=== PATIENT | male | born 1950 | race Caucasian/White ===

== ENCOUNTER 2017-04-28 09:51 | Emergency (ER) | payer MEDICARE, OTHER ==
[~2017-04-28] VITALS: Ht 177.8 cm; Wt 59.8 kg
[~2017-04-28 09:51] MED LIST: FLUO20TA20 PO; LAMO100T PO; LISI-360 PO; LORA0.5T PO; MIRT30 OR; MS C30TA5 PO; NORV5TAB PO; PRIL20CA PO; SPIRCAP INH; VENTAER INH; ZANA4CAP PO
[2017-04-28 09:55] VITALS: BP 128/72; PULSE 74; RESP 18; TEMP 98.8; O2SAT 96
[2017-04-28] MEDS ORDERED: LIDOCAINE HCL 1% PF 30 ML VIAL ONE (10:02)
[2017-04-28] MEDS ORDERED: FLUO20CA12 PO (10:09)
[2017-04-28] MEDS ORDERED: MULT1TAB46 PO (10:09)
[2017-04-28] MEDS ORDERED: SPIRCAP INH (10:09)
[2017-04-28] MEDS ORDERED: VENTAER INH (10:09)
[2017-04-28] MEDS ORDERED: LISI10TA3 PO (10:09)
[2017-04-28] MEDS ORDERED: ASPI-110 PO (10:09)
[2017-04-28] MEDS ORDERED: LAMO100T PO (10:09)
[2017-04-28] MEDS ORDERED: LORA1TAB12 PO (10:09)
[2017-04-28] MEDS ORDERED: OMEP20TA PO (10:09)
[2017-04-28] MEDS ORDERED: TIZA4CAP3 PO (10:10)
[2017-04-28] MEDS ORDERED: AMLO5 PO (10:10)
[2017-04-28] MEDS ORDERED: LIDOCAINE HCL 1% PF 30 ML VIAL INFIL ONE (10:15)
--- NOTE | 2017-04-28 10:30 | PD ---
HPI Chief Complaint: Laceration/Skin Injury Time Seen by Provider: 10:02 Travel History International Travel<30 days: No Contact w/Intl Traveler<30days: No Traveled to known affect area: No History of Present Illness HPI This 66-year-old male presents with a laceration of his left hand. He says he was sitting on his riding lawnmower and his hand hit a branch causing a laceration on the dorsal surface of the hand. The laceration is overlying the fourth metacarpophalangeal joint. He has full use of the hand. He has no numbness or tingling. He was no other injury [facility] Past Medical History Anxiety: Yes Depression: Yes Cancer: No Cardiovascular Problems: No COPD: Yes (EMPHYSEMA) Diabetes: No Diminished Hearing: No Endocrine: No Hepatitis: No Hiatal Hernia: No Hypertension: Yes Immune Disorder: No Medical other: Yes (ARTHRITIS BACK; NUMBNESS & PAIN LEFT LEG) Musculoskeletal: Yes (CHRONIC BACK PAIN) Neurologic: No Psychiatric: Yes (ANXIETY, DEPRESSION) Reproductive: No Respiratory: Yes (EMPHYSEMA) Thyroid Disease: No Tetanus Vaccination: < 5 Years Influenza Vaccination: Yes ?: Not Past Surgical History Surgical History: No Previous Surgery Abdominal Surgery: No Cardiac Surgery: No Ear Surgery: No Endocrine Surgery: No Eye Surgery: Yes (PHACO RIGHT EYE FEBRUARY 2011) Genitourinary Surgery: No Neurologic Surgery: Yes (LAMINECTOMY L-5 AND S-1 18 YRS AGO) Pacemaker: No Thoracic Surgery: No Other Surgery: Yes (BACK [id number]) Social History Alcohol Use: No (QUIT 10 YEARS AGO) Tobacco Use: Yes (1 PPD) Substance Use: No Allergies-Medications (Allergen,Severity, Reaction): Coded Allergies: No Known Allergies (Verified , 04/28/17) Reported Meds & Prescriptions Reported Meds & Active Scripts Active Reported Tizanidine (Tizanidine HCl) 4 Mg Cap 4 Mg PO BID Norvasc (Amlodipine Besylate) 5 Mg Tab 5 Mg PO DAILY Multi Vitamin Daily (Multiple Vitamin) 1 Tab Tab 1 Tab PO DAILY Aspirin 81 (Aspirin) 81 Mg Tabdr 81 Mg PO DAILY Omeprazole 20 Mg Tab 20 Mg PO DAILY Lorazepam 1 Mg Tab 1 Mg PO Q6H PRN Fluoxetine (Fluoxetine HCl) 20 Mg Capsule 20 Mg PO DAILY Lisinopril 10 Mg Tab 10 Mg PO DAILY Lamotrigine 100 Mg Tab 100 Mg PO DAILY Spiriva Handihaler (Tiotropium Inh) 18 Mcg Cap 18 Mcg INH DAILY 1 capsule = 18 mcg Ventolin Hfa 18 GM Inh (Albuterol Sulfate) 90 Mcg/Act Aer 2 Puff INH Q4-6H PRN Review of Systems General / Constitutional: No: Fever, Chills HENT: No: Headaches Cardiovascular: No: Chest Pain or Discomfort Gastrointestinal: No: Vomiting Neurologic: No: Dizziness, Syncope Physical Exam Narrative GENERAL: Thin male no acute distress SKIN: Focused skin assessment warm/dry. HEAD: Atraumatic. Normocephalic. EYES: Pupils equal and round. No scleral icterus. No injection or drainage. ENT: No nasal bleeding or discharge. Mucous membranes pink and moist MUSCULOSKELETAL: No obvious deformities. No clubbing. No cyanosis. No edema. Examination of the left hand there is a superficial laceration of the left hand. It is a stellate flap-type laceration overlying the fourth metacarpophalangeal joint. He has full strength and extension of the fourth and fifth fingers. Sensation is intact. There is no bony tenderness. NEUROLOGICAL: Awake and alert. No obvious cranial nerve deficits. Motor grossly within normal limits. Normal speech. PSYCHIATRIC: Appropriate mood and affect; insight and judgment normal. Data Data Last Documented VS Vital Signs Date Time Temp Pulse Resp B/P Pulse Ox O2 Delivery O2 Flow Rate FiO2 04/28/17 09:55 98.8 74 18 128/72 96 Orders Lidocaine Pf 1% Inj (Xylocaine-Mpf 1% In (04/28/17 10:02) Lidocaine Pf 1% Inj (Xylocaine-Mpf 1% In (04/28/17 10:15) MDM Medical Decision Making Medical Screen Exam Complete: Yes Emergency Medical Condition: Yes Medical Record Reviewed: Yes Differential Diagnosis Differential includes laceration hand, neurovascular injury Narrative Course Physical examination does not show any evidence of weakness or other evidence of neurovascular injury. This appears to be a soft tissue injury Procedures Procedure Narrative Procedure was discussed with the patient. The wound was anesthetized with 1% lidocaine. It was irrigated thoroughly with tap water and cleaned with Betadine and the Betadine thoroughly irrigated. After cleansing of the wound the stellate flap-type laceration is approximated with 4-0 nylon sutures. There was a single-layer closure of approximately 5 cm. Patient tolerated the procedure well. Hemostasis was obtained. A sterile dressing applied Diagnosis Primary Impression: Laceration of left hand Additional Instructions: Suture removal 10-14 days, return if redness, drainage, fever Disposition: 01 DISCHARGE HOME Condition: Stable Wilber Hernandez MD Apr 28, 2017 10:30
== END 2017-04-28 10:44 | disposition home or self-care (01) ==
LOC: PHED 09:51
DX: S61.412A Laceration without foreign body of left hand, initial encounter (principal); J43.9 Emphysema, unspecified; I10 Essential (primary) hypertension; F17.210 Nicotine dependence, cigarettes, uncomplicated; W22.8XXA Striking against or struck by other objects, initial encounter; Y93.H2 Activity, gardening and landscaping; Y92.007 Garden or yard of unspecified non-institutional (private) residence as the place of occurrence of the external cause
CPT/HCPCS: 12002

== ENCOUNTER 2017-10-01 08:24 | Emergency (ER) | payer OTHER ==
[~2017-10-01] VITALS: Ht 177.8 cm; Wt 62.6 kg
[~2017-10-01 08:24] MED LIST changes: +AMLO5 PO; +ASPI1TAB57 PO; +FLUO20CA12 PO; -FLUO20TA20 PO; -LISI-360 PO; +LISI10TA3 PO; -LORA0.5T PO; +LORA1TAB12 PO; -MIRT30 OR; -MS C30TA5 PO; +MULT1TAB46 PO; -NORV5TAB PO; +OMEP20TA93 PO; -PRIL20CA PO; +TIZA4CAP3 PO; -ZANA4CAP PO
[2017-10-01 08:26] VITALS: BP 148/80; PULSE 66; RESP 18; TEMP 97.3; O2SAT 97
[2017-10-01] MEDS ORDERED: AUGM875T3 PO (08:48)
--- NOTE | 2017-10-01 08:49 | PD ---
HPI Chief Complaint: Bite or Sting Time Seen by Provider: 08:36 Travel History International Travel<30 days: No Contact w/Intl Traveler<30days: No Traveled to known affect area: No History of Present Illness HPI Patient is a 67-year-old male presents emergency department for evaluation of a squirrel bite. Patient states he was feeding squirrels yesterday and was bitten on his index finger, states had some mild swelling progressed since then but he states not in any pain. Showed neighbor who told him he might be at risk for rabies and a,. Be seen. He states tetanus is up-to-date. Denies any fevers denies any hand swelling. He states he was able to track the animal and has that he has the animal and his possession at home. He states he was just feeding squirrels and this one bit him while reaching for food. PFSH Past Medical History Anxiety: Yes Depression: Yes Cancer: No Cardiovascular Problems: No COPD: Yes (EMPHYSEMA) Diabetes: No Diminished Hearing: No Endocrine: No Hepatitis: No Hiatal Hernia: No Hypertension: Yes Immune Disorder: No Medical other: Yes (ARTHRITIS BACK; NUMBNESS & PAIN LEFT LEG) Musculoskeletal: Yes (CHRONIC BACK PAIN) Neurologic: No Psychiatric: Yes (ANXIETY, DEPRESSION) Reproductive: No Respiratory: Yes (EMPHYSEMA) Thyroid Disease: No Tetanus Vaccination: < 5 Years Influenza Vaccination: Yes Past Surgical History Abdominal Surgery: No Cardiac Surgery: No Ear Surgery: No Endocrine Surgery: No Eye Surgery: Yes (PHACO RIGHT EYE FEBRUARY 2011) Genitourinary Surgery: No Neurologic Surgery: Yes (LAMINECTOMY L-5 AND S-1 18 YRS AGO) Pacemaker: No Thoracic Surgery: No Other Surgery: Yes (BACK [id number]) Social History Alcohol Use: No (QUIT 10 YEARS AGO) Tobacco Use: Yes (1 PPD) Substance Use: No Allergies-Medications (Allergen,Severity, Reaction): Coded Allergies: No Known Allergies (Verified Adverse Reaction, Unknown, 10/01/17) Reported Meds & Prescriptions Reported Meds & Active Scripts Active Augmentin (Amoxicillin-Clavulanate) 875-125 Mg Tab 1 Tab PO BID 7 Days Reported Tizanidine (Tizanidine HCl) 4 Mg Cap 4 Mg PO BID Norvasc (Amlodipine Besylate) 5 Mg Tab 5 Mg PO DAILY Multi Vitamin Daily (Multiple Vitamin) 1 Tab Tab 1 Tab PO DAILY Aspirin 81 (Aspirin) 81 Mg Tabdr 81 Mg PO DAILY Omeprazole 20 Mg Tab 20 Mg PO DAILY Lorazepam 1 Mg Tab 1 Mg PO Q6H PRN Fluoxetine (Fluoxetine HCl) 20 Mg Capsule 20 Mg PO DAILY Lisinopril 10 Mg Tab 10 Mg PO DAILY Lamotrigine 100 Mg Tab 100 Mg PO DAILY Spiriva Handihaler (Tiotropium Inh) 18 Mcg Cap 18 Mcg INH DAILY 1 capsule = 18 mcg Ventolin Hfa 18 GM Inh (Albuterol Sulfate) 90 Mcg/Act Aer 2 Puff INH Q4-6H PRN Review of Systems Except as stated in HPI: all other systems reviewed are Neg Physical Exam Narrative GENERAL: Well-developed well-nourished in no obvious distress SKIN: Focused skin assessment warm/dry. 2 small puncture bites seen on the right index finger, clean dry and intact, minimal swelling. HEAD: Atraumatic. Normocephalic. EYES: Pupils equal and round. No scleral icterus. No injection or drainage. ENT: No nasal bleeding or discharge. Mucous membranes pink and moist. NECK: Trachea midline. No JVD. CARDIOVASCULAR: Regular rate and rhythm. No murmur appreciated. RESPIRATORY: No accessory muscle use. Clear to auscultation. Breath sounds equal bilaterally. GASTROINTESTINAL: Abdomen soft, non-tender, nondistended. Hepatic and splenic margins not palpable. MUSCULOSKELETAL: No obvious deformities. No clubbing. No cyanosis. No edema. Minimal limited range of motion in the right index finger secondary to swelling but all flexor an extensor tendon motions are intact. No erythema seen. NEUROLOGICAL: Awake and alert. No obvious cranial nerve deficits. Motor grossly within normal limits. Normal speech. PSYCHIATRIC: Appropriate mood and affect; insight and judgment normal. Data Data Last Documented VS Vital Signs Date Time Temp Pulse Resp B/P (MAP) Pulse Ox O2 Delivery O2 Flow Rate FiO2 10/01/17 08:26 97.3 66 18 148/80 (102) 97 Orders Orders Ed Discharge Order (10/01/17 08:49) [facility] Medical Decision Making Medical Screen Exam Complete: Yes Emergency Medical Condition: Yes Differential Diagnosis Squirrel bite, rabies exposure unlikely, tetanus status up-to-date. Narrative Course Patient roomed emerged permit, appears to have uncomplicated bite, tetanus status is up-to-date. We'll place on empiric Augmentin, discussed observing the animal for rabies symptoms, is unlikely given the squirrel bite that he has had his rabies transmission. Given that he has the animal in his custody and is unlikely given the squirrel bite, there is no indication for rabies prophylaxis at this time. He was instructed that he is uncomfortable keeping the animal himself he could take it to animal control to have it tested/ destroyed/observed. He verbalized understanding and agreement. Discussed return to ED criteria. Diagnosis Primary Impression: Bitten by squirrel Additional Impression: Other superficial bite of right index finger, initial encounter Additional Instructions: Recommend taking the animal to your local animal control, they can test her observed the animal for possible rabies. [facility] Address: [address] [place], [place] [address] [facility], [place] [id number] Med/Other Pt SpecificInfo: Prescription(s) given Scripts Amoxicillin-Clavulanate (Augmentin) 875-125 Mg Tab 1 TAB PO BID for Infection for 7 Days, #14 TAB 0 Refills Prov: Justo Sanders MD 10/01/17 Disposition: 01 DISCHARGE HOME Condition: Stable Justo Sanders MD Oct 01, 2017 08:49
== END 2017-10-01 09:02 | disposition home or self-care (01) ==
LOC: PHED 08:24
DX: S61.250A Open bite of right index finger without damage to nail, initial encounter (principal); W53.21XA Bitten by squirrel, initial encounter; J44.9 Chronic obstructive pulmonary disease, unspecified; I10 Essential (primary) hypertension
CPT/HCPCS: 99283